=== PATIENT | female | born 1970 | race Caucasian/White ===

== ENCOUNTER 2017-09-21 11:49 | Emergency (ER) | payer OTHER ==
--- NOTE | 2017-09-21 12:29 | UC ---
Throat Pain/Nasal Edvin HPI - HPI Summary HPI Summary: Pt presents with sinus congestion and post nasal drip since last night. She tells me that she has an extensive history of chronic sinusitis and allergies. Most recently she had a "sinus infection" for 7 weeks, finally ending in July after taking amoxicillin and two rounds of augmentin. She does see an visual associate for this and takes daily allergy medication. Denies fever, chills, sore throat, SOB, chest pain. - History of Current Complaint Stated Complaint: SINUS ISSUE Time Seen by Provider: 09/21/17 12:29 Hx Obtained From: Patient Hx Last Menstrual Period: 08-29-15 Onset/Duration: Sudden Onset - Allergies/Home Medications Allergies/Adverse Reactions: Allergies Allergy/AdvReac Type Severity Reaction Status Date / Time peanut oil Allergy Difficulty Verified 09/21/17 12:36 Breathing pollen extracts Allergy Runny Nose Verified 09/21/17 12:36 Home Medications: Home Medications Azelastine/Fluticasone JENNIFER(NF [Dymista(NF)] 1 spray BOTH NARES BID 09/21/17 [ History Confirmed 09/21/17] PMH/Surg Hx/FS Hx/Imm Hx - Additional Past Medical History Additional PMH: Allergies Respiratory History: Asthma Psychological History: Anxiety Other History Of: Negative For: HIV, Hepatitis B, Hepatitis C - Surgical History Surgical History: Yes Surgery Procedure, Year, and Place: EXPLORATORY SURGERY - INFERTILITY ISSUES - Family History Known Family History: Positive: None - Social History Occupation: Employed Full-time Lives: With Family Alcohol Use: None Substance Use Type: None Smoking Status (MU): Never Smoked Tobacco - Immunization History Most Recent Influenza Vaccination: FALL 2014 Most Recent Tetanus Shot: UNSURE Review of Systems Constitutional: Negative Skin: Negative Eyes: Negative ENT: Nasal Discharge, Sinus Congestion Respiratory: Negative Cardiovascular: Negative Gastrointestinal: Negative Neurovascular: Negative Neurological: Negative Psychological: Negative All Other Systems Reviewed And Are Negative: Yes Physical Exam - Summary Physical Exam Summary: GENERAL: NAD. WDWN. No pain distress. SKIN: No rashes, sores, lesions, or open wounds. HEENT: Head: AT/NC Eyes: EOM intact. Conjunctiva clear without inflammation or discharge. Ears: Hearing grossly normal. TMs intact, no bulging, erythema, or edema. Nose: Nasal mucosa pink and moist. NTTP maxillary and frontal sinus. Throat: Posterior oropharynx without exudates, erythema, or tonsillar enlargement. Uvula midline. NECK: Supple. Nontender. No lymphadenopathy. CHEST: CTAB. No r/r/w. No accessory muscle use. Breathing comfortably and in no distress. CV: RRR. Without m/r/g. Pulses intact. Brisk cap refill. NEURO: Alert. CN II-XII grossly intact. PSYCH: Age appropriate behavior. Triage Information Reviewed: Yes Throat Pain/Nasal Course/Dx - Course Course Of Treatment: I suspect that her symptoms are viral and/or allergy related. Advised to continue with supportive care and hold on antibiotic at this time. - Differential Dx/Diagnosis Provider Diagnoses: Allergies Discharge - Sign-Out/Discharge Documenting (check all that apply): Discharge/Admit/Transfer - Discharge Plan Condition: Stable Disposition: HOME Patient Education Materials: Rhinosinusitis (ED) Referrals: Ingris Rhodes MD [Primary Care Provider] - Additional Instructions: If you develop a fever, shortness of breath, chest pain, new or worsening symptoms - please call your PCP or go to the ED. - Billing Disposition and Condition Condition: STABLE Disposition: HOME
[2017-09-21 12:35] VITALS: BP 119/71
== END 2017-09-21 12:56 | disposition home or self-care (01) ==
LOC: UCEAST 11:49
DX: J45.909 Unspecified asthma, uncomplicated (principal); F41.9 Anxiety disorder, unspecified
CPT/HCPCS: 99211; G0463